=== PATIENT | female | born 1980 ===

== ENCOUNTER 2016-11-02 06:14 | Inpatient (IN) | payer OTHER ==
[~2016-11-02] VITALS: Ht 154.9 cm; Wt 60.9 kg
[2016-11-02] VITALS (17 sets, daily range): BP systolic 90–122; BP diastolic 49–77; PULSE 52–85; TEMP 97.4–98
[~2016-11-02 06:14] MED LIST: MOTRIN 600600 MG/TAB PO; PERCOCET 325 MG1 TA2 PO
[2016-11-02] MEDS ORDERED: PRENATAL (06:43)
[2016-11-02 07:09] LABS: BASO % 0.3 % (0.0-2.0); EOS # 0.1 (0.0-0.7); EOS % 1.4 % (0-4.0); GRAN # 7.7 (1.4-6.5); HEMATOCRIT 37.6 % (37.0-47.0); HEMOGLOBIN 12.8 g/dl (12.5-16.0); LYMPH # 1.7 (1.2-3.4); LYMPH % 16.6 % (20.0-51.0); MEAN CELL VOLUME 95 fl (80.0-100.0); MEAN CORPUSCULAR HEMOGLOBIN 32 pg (27.0-31.0); MEAN CORPUSCULAR HGB CONC 34 g/dl (33.0-37.0); MEAN PLATELET VOLUME 9.3 fl (7.4-10.4); MONO # 0.7 (0.1-0.6); MONO % 6.8 % (1.7-9.3); PLATELET COUNT 267 K/mm3 (130-400); RED BLOOD COUNT 3.96 M/mm3 (4.10-5.30); REDCELL DISTRIBUTION WIDTH-CV 12.2 % (11.5-14.5); WHITE BLOOD COUNT 10.3 K/mm3 (4.8-10.8)
[2016-11-03 01:30] VITALS: BP 94/58; PULSE 57; TEMP 97.4
[2016-11-03 05:00] VITALS: BP 104/63; PULSE 60; TEMP 97.8
[2016-11-03 07:40] VITALS: BP 103/66; PULSE 66; TEMP 97.7
[2016-11-03 16:16] VITALS: BP 100/59; PULSE 64; TEMP 98.5
[2016-11-03 19:30] VITALS: BP 123/74; PULSE 66; TEMP 97.9
[2016-11-04 07:03] VITALS: BP 109/69; PULSE 67; TEMP 98.2
[2016-11-04] MEDS ORDERED: IBU800 M1 PO (08:19)
[2016-11-04] MEDS ORDERED: PERCOCET 325 MG1 TA2 PO (08:20)
== END 2016-11-04 10:00 | disposition home or self-care (01) | DRG 775 ==
LOC: LDRO 06:14 → LDR 06:20 → OB 06:20 → LDRO 11-10 09:50
PROVIDERS: Obstetrics & Gynecology
PROC: 10D07Z6 Extraction of Products of Conception, Vacuum, Via Natural or Artificial Opening (ICD-10-PCS; principal; 2016-11-02)
DX: O99.824 Streptococcus B carrier state complicating childbirth (principal); O76 Abnormality in fetal heart rate and rhythm complicating labor and delivery; O09.523 Supervision of elderly multigravida, third trimester; Z3A.38 38 weeks gestation of pregnancy; Z37.0 Single live birth
CPT/HCPCS: J2540; J2590; J7120